=== PATIENT | female | born 2000 | race Caucasian/White ===

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

== ENCOUNTER 2022-04-20 13:08 | Emergency (ER) | payer OTHER | END 2022-04-20 18:48 | disposition left against medical advice (07) | LOC: MW.ED 13:08 | DX: Z53.21 Procedure and treatment not carried out due to patient leaving prior to being seen by health care provider (principal) ==

== ENCOUNTER 2024-06-01 18:49 | Inpatient (IN) | payer OTHER ==
[2024-06-01] MEDS ORDERED: Sodium Chloride 0.9% 10 ML Syringe FLUSH PRN (20:50)
[2024-06-01] MEDS ORDERED: Methylergonovine 0.2 MG/1 ML Amp IM PRN (20:50)
[2024-06-01] MEDS ORDERED: Sodium Chloride 0.9% 20 ML SDV IV PRN (20:50)
[2024-06-01] MEDS ORDERED: Misoprostol 200 MCG Tab PO PRN (20:50)
[2024-06-01] MEDS ORDERED: Ondansetron 4 MG/2 ML SDV IVPUSH PRN (20:50)
[2024-06-01] MEDS ORDERED: Lidocaine 1% 50 ML MDV INJECT PRN (20:50)
[2024-06-01] MEDS ORDERED: Water For Irrigation,Sterile 1,000 ML Container IRR PRN (20:50)
[2024-06-01] MEDS ORDERED: Terbutaline 1 MG/ML SDV SUBCUT PRN (20:50)
[2024-06-01] MEDS ORDERED: Carboprost Tromethamine 250 MCG/1 mL Vial IM PRN (20:50)
[2024-06-01] MEDS ORDERED: Tranexamic Acid in NACL,ISO-OS 1,000 MG/100 ML Bag IV ONE (20:50)
[2024-06-01] MEDS ORDERED: Butorphanol 2 MG/ML SDV IVPUSH PRN (20:50)
[2024-06-01] MEDS ORDERED: Sodium Chloride 0.9% 2.5 ML Syringe FLUSH PRN (20:50)
[2024-06-01] MEDS ORDERED: Oxytocin/0.9 % Sodium Chloride 30 UNIT/500 ML BAG IV SCH (21:00)
[2024-06-01] MEDS: Sodium Chloride 0.9% 1,000 ML IV SCH (21:31)
[2024-06-01 21:41] LABS: HEMATOCRIT 30.8 % (37.0-47.0); HEMOGLOBIN 10.4 g/dL (12.0-16.0); MEAN CORPUSCULAR HEMOGLOBIN 25.6 pg (28.0-32.0); MEAN CORPUSCULAR HGB CONC 33.8 g/dL (32.0-36.0); MEAN CORPUSCULAR VOLUME 75.7 fL (83.0-99.0); MEAN PLATELET VOLUME 12.1 fL (9.4-12.3); PLATELET COUNT,PLT 214 K/uL (150-400); RED BLOOD CELL COUNT 4.07 M/uL (4.10-5.30); WHITE BLOOD CELL COUNT,WBC 8.64 K/uL (3.9-11.3)
[2024-06-01] MEDS: Misoprostol 25 MCG (1/4 of 100 MCG) Tab VAG PRN (21:54)
[2024-06-02] MEDS: Acetaminophen 500 MG Tab PO ONE (01:00)
[2024-06-02] MEDS: Misoprostol 25 MCG (1/4 of 100 MCG) Tab VAG PRN (02:33)
[2024-06-02] MEDS: Oxytocin/0.9 % Sodium Chloride 30 UNIT/500 ML BAG IV SCH (10:50)
[2024-06-02] MEDS: Sodium Chloride 0.9% 1,000 ML IV SCH (11:00)
[2024-06-02] MEDS: Ropivacaine HCl/PF 200 ML ONE (11:39)
[2024-06-02] MEDS ORDERED: ePHEDrine 50 MG/ML SDV IVPUSH PRN (12:03)
[2024-06-02] MEDS ORDERED: Phenylephrine HCl In 0.9% NaCl 1 MG/10 ML Syringe IVPUSH PRN (12:03)
[2024-06-02] MEDS ORDERED: Ropivacaine HCl/PF 400 MG in Premix Bag 1 BAG EPIDUR SCH (12:15)
[2024-06-02] MEDS ORDERED: dexmedeTOMIDine HCl 200 MCG/2 ML SDV EPIDUR SCH (12:15)
[2024-06-02] MEDS ORDERED: oxyCODONE 5 MG Tab PO PRN (19:14)
[2024-06-02 19:56] LABS: PH,UMBILICAL ARTERIAL 7.242 (7.18-7.38); PH,UMBILICAL VENOUS 7.243 (7.25-7.45)
[2024-06-02] MEDS: Benzocaine/Menthol 20%-0.5% Spray 78 GM Cannister TOP PRN (21:47)
[2024-06-02] MEDS: Lanolin 100% Cream 7 GM Tube TOP PRN (21:48)
[2024-06-02] MEDS: Witch Hazel Medicated Pads 40/Jar TOP PRN (21:48)
[2024-06-02] MEDS: Ibuprofen 800 MG Tab PO PRN (21:49)
[2024-06-02] MEDS: Acetaminophen 500 MG Tab PO PRN (21:49)
[2024-06-03 06:23] LABS: HEMATOCRIT 25.7 % (37.0-47.0); HEMOGLOBIN 8.3 g/dL (12.0-16.0)
[2024-06-04] MEDS: Docusate Sodium 100 MG Cap PO PRN (08:30)
== END 2024-06-04 22:20 | disposition home or self-care (01) | DRG 807 ==
LOC: MW.OB 18:49 → OBSVTOIN 06-02 18:49 → MW.OB 06-02 23:16
PROVIDERS: ADMIT Obstetrics & Gynecology; ATTEND Obstetrics & Gynecology
PROC: 10E0XZZ Delivery of Products of Conception, External Approach (ICD-10-PCS; principal; 2024-06-02)
PROC: 3E0R3BZ Introduction of Anesthetic Agent into Spinal Canal, Percutaneous Approach (ICD-10-PCS; 2024-06-02)
PROC: 00HU33Z Insertion of Infusion Device into Spinal Canal, Percutaneous Approach (ICD-10-PCS; 2024-06-02)
DX: O70.1 Second degree perineal laceration during delivery (principal); Z37.0 Single live birth; Z3A.39 39 weeks gestation of pregnancy
CPT/HCPCS: 01967; 36415; 51702; 59025; 59409; 82803; 85014; 85018; 85027; 86592; 86850; 86900; 86901; A9270-GY; J2590; J2795; J7030